=== PATIENT | female | born 1970 | race Caucasian/White ===

== ENCOUNTER 2021-01-17 19:39 | Inpatient (IN) ==
[2021-01-17] MEDS ORDERED: dexAMETHasone**PF** 10 MG/ML VIAL IV ONE (20:06)
[2021-01-17] MEDS ORDERED: ACETAMINOPHEN 1,000 MG/100 ML VIAL IV STA (20:06)
[2021-01-17] MEDS ORDERED: ALBUTEROL HFA 8 GM INHALER INH ONE (20:07)
[2021-01-17 20:51] LABS: Basophils # (auto) 0.01 K/uL (0-0.2); Basophils % (auto) 0.2 %; Eosinophils # (auto) 0.01 K/uL (0-0.5); Eosinophils % (auto) 0.2 %; Hematocrit (blood only) 39.2 % (37-47); Hemoglobin 13.1 g/dL (12.0-16.0); Immature Granulocytes # (auto) 0.02 K/uL (0.00-0.02); Immature Granulocytes % (auto) 0.4 %; Lymphocytes # (auto) 0.83 K/uL (1.2-3.4); Lymphocytes % (auto) 15.1 %; Mean Corpuscular Hemoglobin 28.6 pg (25-34); Mean Corpuscular Hgb Conc 33.4 g/dL (32-36); Mean Corpuscular Volume 85.6 fL (80-100); Monocytes # (auto) 0.51 K/uL (0.11-0.59); Monocytes % (auto) 9.3 %; Neutrophils % (auto) 74.8 %; Platelet Count 231 K/uL (130-400); RDW Coefficient of Variation 14.1 % (11.5-14.5); RDW Standard Deviation 44.4 fL (36.4-46.3); Red Blood Count 4.58 M/uL (4.2-5.4); White Blood Count 5.48 K/uL (4.8-10.8)
[2021-01-17 21:01] LABS: Partial Thromboplastin Ratio 0.9; Partial Thromboplastin Time 24.2 Seconds (21.0-31.0); Prothrombin Time 9.7 Seconds (9.0-12.0)
[2021-01-17 21:07] LABS: Alanine Aminotransferase 92 U/L (12-78); Aspartate Aminotransferase 96 U/L (15-37); BUN Creatinine Ratio 18.6 (10-20); Blood Urea Nitrogen 13 mg/dl (7-18); Carbon Dioxide 27 mmol/L (21-32); Chloride 105 mmol/L (98-107); Creatinine Clr Calc Pharmacy 119.8 ml/min; Est GFR (African American) 117.1 ml/min; Est GFR (Non-African American) 101.1 ml/min; Glucose 122 mg/dl (70-99); Magnesium 2.1 mg/dl (1.8-2.4); Potassium 3.8 mmol/L (3.5-5.1); Sodium 139 mmol/L (136-145)
[2021-01-17 21:12] LABS: Albumin Globulin Ratio 0.7 (0.9-2); Alkaline Phosphatase 88 U/L (45-117); Bilirubin,Total 0.5 mg/dl (0.2-1); Ferritin 631.6 ng/ml (8-388); Globulin 4.6 gm/dl (2.5-4.0); Total Protein 7.6 gm/dl (6.4-8.2); Troponin I < 0.015 ng/ml (0-0.045)
[2021-01-17] MEDS ORDERED: REMDESIVIR 200 MG in SODIUM CHLORIDE 0.9% 210 ML IV STA (22:45)
--- NOTE | 2021-01-17 22:46 | History & Physical Report ---
Date of Service January 17, 2021 Assessment & Plan (1) COVID-19: Plan: 50yo female with no significant past history presenting with Covid-19 infection, hypoxic to 85% on arrival. Patient improved with supplemental O2 - presently 97% on 4L -Admit to medical -Dexamethasone 6mg IV daily -Remdesivir per protocol. Monitor liver and renal function. Patient has mild elevation in AST/ALT -Tylenol PRN fever -Albuterol HFA PRN -Lovenox 40mg BID for DVT prophylaxis History of Present Illness Chief Complaint: Cough, SOB Primary Care Provider: Nilsa James MD Ashley Alonso is a 50yo female with history of seasonal allergies presenting with Covid-19 pneumonia. Patient reports symptoms began 6 days ago - fever, fatigue, malaise as well as cough and SUERO. She was tested for Covid-19 at [facility] and got her results this AM. Her purchased a pulse oximeter and patient's pulse ox was noted to be 89% on room air. Patient 85% on room air on arrival to ER. She was placed on 4L NC with improvement. She is not vaccinated and was recently around others with Covid-19. Presently with no complaints. Doing well on 2L NC. Allergies Allergy/AdvReac Type Severity Reaction Status Date / Time No Known Allergies Allergy Verified 01/17/21 20:01 Home Medications Medication Instructions Recorded Confirmed Type cetirizine 10 mg tablet (Zyrtec) 10 mg PO DAILY PRN 11/12/20 01/17/21 History fluticasone propionate 50 1 spray INTRANASAL BID PRN 11/12/20 01/17/21 History mcg/actuation nasal spray,suspension Past Med/Surg History Medical History (Updated 01/18/21 @ 02:08 by Lynnette Goncalves DO) COVID-19 Seasonal allergies Surgical History S/P left knee arthroscopy Family History Other No family history of adverse response to anesthesia Social History Smoking Status: Never smoker Second Hand Exposure: No; Hx Alcohol Use: Yes Alcohol type: hard liquor Hx Substance Use: No Preferred Language: Lao Communication Ability: Effective Director Informatics Required: No Beliefs That Will Affect Care: None Current Living Situation: Spouse Current Living Situation Comment: Lives with Other Information That Helps Us Care for You: No Feels Safe at Home: Yes Safety Concerns: Feels Safe At This Time Assistive Devices: None Review of Systems Review of Systems: All systems reviewed & are unremarkable except as noted in HPI & below Physical Exam Physical Exam: General: patient resting comfortably, NAD, non-toxic in appearance, AA&O x 4 Skin: warm, dry, intact, no rashes or lesions HEENT: NC/AT, PERRL, EOMI, anicteric sclera, conjunctiva without injection, external ear normal to inspection and nontender, nares patent, moist mucus membranes, dentition intact, no oropharyngeal lesions, neck supple, trachea midline, no LAD, no thyromegaly, no JVD Heart: +S1/S2, regular, no m/r/g Lungs: equal air entry bilaterally, crackles in bilateral bases Abd: +BS, soft, NT/ND, no masses/organomegaly/ascites Ext: warm, 2+ pulses in UE/LE bilaterally, no clubbing/cyanosis or edema Neuro: nonfocal, patient AA&O x 4, speech intact, no facial droop, moving all extremities on command with equal strength 5/5 Results & Data Results & Data ([facility]) Vital Signs (Past 12 Hours) Vital Signs Temp Pulse Resp BP Pulse Ox 01/17/21 22:30 87 17 118/84 98 01/17/21 22:01 81 21 102/78 95 01/17/21 21:30 85 22 100/70 93 01/17/21 21:00 83 20 140/69 95 01/17/21 20:00 91 H 20 141/73 H 95 01/17/21 19:51 37.2 C 95 H 30 H 136/81 85 L Laboratory Results Laboratory Results WBC 5.48 K/uL (4.8-10.8) 01/17/21 20:30 RBC 4.58 M/uL (4.2-5.4) 01/17/21 20:30 Hgb 13.1 g/dL (12.0-16.0) 01/17/21 20:30 Hct 39.2 % (37-47) 01/17/21 20:30 MCV 85.6 fL (80-100) 01/17/21 20:30 MCH 28.6 pg (25-34) 01/17/21 20:30 MCHC 33.4 g/dL (32-36) 01/17/21 20: RDW Std Deviation 44.4 fL (36.4-46.3) 01/17/21: RDW Coeff of Anum 14.1 % (11.5-14.5) 01/17/21 20:30 Plt Count 231 K/uL (130-400) 01/17/21: MPV 9.0 fL (7.4-10.4) 01/17/21 20: Immature Gran % (Auto) 0.4 % 01/17/21 20:30 Neut % (Auto) 74.8 % 01/17/21 20:30 Lymph % (Auto) 15.1 % 01/17/21: [place] % (Auto) 9.3 % 01/17/21 20:30 Eos % (Auto) 0.2 % 01/17/21:30 Baso % (Auto) 0.2 % 01/17/21:30 Neut # (Auto) 4.10 K/uL (1.4-6.5) 01/17/21 20:30 Lymph # (Auto) 0.83 K/uL (1.2-3.4) L 01/17/21 20:30 [place] # (Auto) 0.51 K/uL (0.11-0.59) 01/17/21 20:30 Eos # (Auto) 0.01 K/uL (0-0.5) 01/17/21 20:30 Baso # (Auto) 0.01 K/uL (0-0.2) 01/17/21:30 Immature Gran # (Auto) 0.02 K/uL (0.00-0.02) 01/17/21 20:30 ESR 49 mm/hr (0-30) H 01/17/21 20:30 PT 9.7 Seconds (9.0-12.0) 01/17/21 20:30 INR 1.0 (0.9-1.1) 01/17/21 20:30 APTT 24.2 Seconds (21.0-31.0) 01/17/21 20:30 PTT Ratio 0.9 01/17/21:30 Sodium 139 mmol/L (136-145) 01/17/21 20:30 Potassium 3.8 mmol/L (3.5-5.1) 01/17/21 20:30 Chloride 105 mmol/L (98-107) 01/17/21 20:30 Carbon Dioxide 27 mmol/L (21-32) 01/17/21 20:30 Anion Gap 7.0 (3-11) 01/17/21 20:30 BUN 13 mg/dl (7-18) 01/17/21 20:30 Creatinine 0.67 mg/dl (0.6-1.2) 01/17/21 20:30 Est Cr Clr Drug Dosing 119.8 ml/min 01/17/21 20:30 Est GFR ( Amer) 117.1 ml/min 01/17/21 20:30 Est GFR (Non-Af Amer) 101.1 ml/min 01/17/21 20:30 BUN/Creatinine Ratio 18.6 (10-20) 01/17/21 20:30 Glucose 122 mg/dl (70-99) H 01/17/21 20:30 Lactate 1.1 mmol/L (0.4-2.0) 01/17/21 20:30 Calcium 9.0 mg/dl (8.5-10.1) 01/17/21: Phosphorus 3.1 mg/dl (2.5-4.9) 01/17/21 20:30 Magnesium 2.1 mg/dl (1.8-2.4) 01/17/21 20:30 Ferritin 631.6 ng/ml (8-388) H 01/17/21 20:30 Total Bilirubin 0.5 mg/dl (0.2-1) 01/17/21 20:30 AST 96 U/L (15-37) H 01/17/21 20:30 ALT 92 U/L (12-78) H 01/17/21 20:30 Alkaline Phosphatase 88 U/L (45-117) 01/17/21 20:30 Lactate Dehydrogenase 490 U/L (84-246) H 01/17/21 20:30 Troponin I < 0.015 ng/ml (0-0.045) 01/17/21 20:30 C-Reactive Protein 10.70 mg/dl (0-0.29) H 01/17/21 20:30 Total Protein 7.6 gm/dl (6.4-8.2) 01/17/21 20:30 Albumin 3.0 gm/dl (3.4-5.0) L 01/17/21 20:30 Globulin 4.6 gm/dl (2.5-4.0) H 01/17/21 20:30 Albumin/Globulin Ratio 0.7 (0.9-2) L 01/17/21 20:30 Procalcitonin < 0.05 ng/ml (0-0.5) 01/17/21 20:30 COVID-19 Eval Order Covid19 at [facility] 01/17/21 20:23 SARS-CoV-2 (PCR) POSITIVE (Negative) A* 01/17/21 20:23 Blood Type A Positive 01/17/21 20:45 Antibody Screen NEGATIVE 01/17/21 20:45 Diagnostic Findings CXR - by my interpretation patient with patchy bilateral airspace disease Code Status & VTE Plan VTE Prophylaxis Plan VTE Prophylaxis will be ordered: Yes PG Care Time/CCT Total # of Minutes Spent Total Time Spent with Patient: Total time spent is greater than 50% in coordination of care (as documented) at patient's floor/unit and/or counseling patient: Coding Level of Care Code 09521 Initial Inpt Care Lvl 2 Diagnoses COVID-19 U07.1
[2021-01-18] MEDS ORDERED: ONDANSETRON INJ 2 MG/ML 2 ML VIAL IV PRN (00:31)
[2021-01-18] MEDS ORDERED: ACETAMINOPHEN 325 MG TAB PO PRN (00:31)
[2021-01-18 01:02] LABS: Phosphorus 3.1 mg/dl (2.5-4.9)
[2021-01-18] MEDS: SODIUM CHLORIDE 0.9% 10ML FLUSH IV SCH ×2 (02:21→21:21)
[2021-01-18] MEDS: ALBUTEROL HFA 8 GM INHALER INH SCH ×2 (03:46→07:43)
[2021-01-18] MEDS: ENOXAPARIN INJ 40 MG/0.4 ML SYR SQ SCH ×2 (05:47→17:57)
--- NOTE | 2021-01-18 08:07 | XRay Report ---
XR chest 1V portable HISTORY: 50 years-old Female SEPSIS acute sepsis COMPARISON: None TECHNIQUE: AP view of the chest FINDINGS: Cardiac silhouette is normal. Bilateral interstitial opacities with patchy multifocal airspace densit ies. No pneumothorax or large pleural effusion. Bones appear grossly intact. IMPRESSION: Bilateral mixed interstitial and alveolar opacities suggestive of multifocal pneumonia. ACT 112: Negative or not required by law. The above report was generated using voice recognition software. It may contain grammatical, syntax o r spelling errors. Electronically signed by: Michel Anthony M.D. 01/18/2021 8:06 AM
[2021-01-18 08:28] LABS: Basophils # (auto) 0.01 K/uL (0-0.2); Basophils % (auto) 0.4 %; Hematocrit (blood only) 38.9 % (37-47); Immature Granulocytes # (auto) 0.02 K/uL (0.00-0.02); Immature Granulocytes % (auto) 0.7 %; Lymphocytes % (auto) 21.1 %; Mean Corpuscular Hemoglobin 28.4 pg (25-34); Mean Corpuscular Hgb Conc 33.4 g/dL (32-36); Mean Corpuscular Volume 84.9 fL (80-100); Monocytes # (auto) 0.17 K/uL (0.11-0.59); Neutrophils # (auto) 2.04 K/uL (1.4-6.5); Neutrophils % (auto) 71.8 %; Platelet Count 258 K/uL (130-400); RDW Standard Deviation 43.4 fL (36.4-46.3); Red Blood Count 4.58 M/uL (4.2-5.4); White Blood Count 2.84 K/uL (4.8-10.8)
[2021-01-18 08:59] LABS: Albumin Level 2.9 gm/dl (3.4-5.0); BUN Creatinine Ratio 19.8 (10-20); Bilirubin Direct 0.1 mg/dl (0-0.2); Calcium 8.9 mg/dl (8.5-10.1); Creatinine Clr Calc Pharmacy 136.1 ml/min; Est GFR (African American) 122.1 ml/min; Est GFR (Non-African American) 105.4 ml/min; Potassium 3.9 mmol/L (3.5-5.1)
[2021-01-18 09:02] LABS: Bilirubin,Total 0.5 mg/dl (0.2-1); Total Protein 7.6 gm/dl (6.4-8.2)
[2021-01-18] MEDS: dexAMETHasone 6 MG in SYRINGE 0 ML IV SCH (09:02)
[2021-01-18] MEDS ORDERED: ALBUTEROL HFA 8 GM INHALER INH PRN (10:34)
[2021-01-18 11:04] LABS: Appearance Urine Clear (Clear); Bacteria Urine Automated Negative (Negative); Blood Urine Negative (Negative); Color Urine Dark Yellow; Epithelial Cell Urine Auto >30 /lpf (0-5); Glucose Urine UA Negative (Negative); Ketones Urine 2+ (Negative); Leukocyte Esterase Urine Negative (Negative); Nitrite Urine Negative (Negative); Protein Urine 1+ (Negative); Specific Gravity Urine 1.033 (1.000-1.030); Urobilinogen Urine Negative (Negative); pH Urine 5.5 (4.5-7.5)
[2021-01-18 11:06] LABS: Bilirubin Urine 1+ (Negative)
[2021-01-18 11:19] LABS: RBC Urine Automated 0-4 /hpf (0-4)
--- NOTE | 2021-01-18 16:23 | Electrocardiogram Report ---
Test Reason : Blood Pressure : / mmHG Vent. Rate : 089 BPM Atrial Rate : 089 BPM P-R Int : 134 ms QRS Dur : 080 ms QT Int : 364 ms P-R-T Axes : 036 025 002 degrees QTc Int : 442 ms Normal sinus rhythm Normal ECG No previous ECGs available Confirmed by Bucky Zhang ([id number]) on 01/18/2021 4:23:52 PM Referred By: REFERRED SELF Confirmed By:Bucky Zhang
--- NOTE | 2021-01-18 18:20 | Hospitalist Progress Note ---
Date of Service January 18, 2021 Assessment & Plan (1) COVID-19: Plan: 50yo female with no significant past history presenting with Covid-19 infection, hypoxic to 85% on arrival. Patient improved with supplemental O2 - presently 97% on 4L -Continue on medical -Dexamethasone 6mg IV daily -Remdesivir per protocol. Monitor liver and renal function. Patient has mild elevation in AST/ALT (downtrending) -Tylenol PRN fever -Albuterol HFA PRN -Lovenox 40mg BID for DVT prophylaxis (2) Hypoxia: Plan: Aim O2 sats > 92% Admission and Anticipated Discharge Date Admission Date: January 17, 2021 Subjective Main symptoms of fatigue, dry cough and headache. No significant change since admission. Increased O2 requirement from 4LPM to 6LPM. Review of Systems Review of Systems: All systems reviewed & are unremarkable except as noted in HPI & below Physical Exam Constitutional: WD/WN, vitals as above ENMT: external ear and nose normal, oropharynx normal Neck: trachea midline, no thyromegaly Respiratory: normal respiratory effort, lungs clear to auscultation Auscultation: + diminished lung sounds (bibasal); no crackles and no wheezes Cardiovascular: RRR, no murmur, no edema Extremities: normal capillary refill; no calf tenderness and no pedal edema Gastrointestinal (Abdomen): normal bowel sounds, soft, nontender, no h epatosplenomegaly Musculoskeletal: no cyanosis or clubbing, extremities motor strength 5/5 Skin: no rashes, warm and dry Neurologic: moves all extremities and awake; not confused Psychiatric: A+Ox3, euthymic affect Results & Data Results & Data ([facility]) Vital Signs (Past 12 Hours) Vital Signs Temp Pulse Resp BP Pulse Ox Pulse Ox 01/18/21 16:37 37 C 71 20 118/76 92 01/18/21 09:00 92 01/18/21 07:44 70 18 88 L 01/18/21 07:43 36.9 C 84 16 114/74 93 PG Care Time/CCT Total # of Minutes Spent Total Time Spent with Patient: Total time spent is greater than 50% in coordination of care (as documented) at patient's floor/unit and/or counseling patient: Coding Level of Care Code 95526 Subseq Hosp Care Lvl 2 Diagnoses COVID-19 U07.1 Hypoxia R09.02
[2021-01-18] MEDS: REMDESIVIR 100 MG in SODIUM CHLORIDE 0.9% 230 ML IV SCH (20:13)
[2021-01-19] MEDS: ENOXAPARIN INJ 40 MG/0.4 ML SYR SQ SCH ×2 (05:37→16:59)
[2021-01-19 08:13] LABS: Basophils # (auto) 0.01 K/uL (0-0.2); Basophils % (auto) 0.2 %; Hematocrit (blood only) 37.5 % (37-47); Hemoglobin 12.4 g/dL (12.0-16.0); Immature Granulocytes # (auto) 0.04 K/uL (0.00-0.02); Immature Granulocytes % (auto) 0.6 %; Lymphocytes # (auto) 1.13 K/uL (1.2-3.4); Lymphocytes % (auto) 18.3 %; Mean Corpuscular Hemoglobin 28.2 pg (25-34); Mean Corpuscular Hgb Conc 33.1 g/dL (32-36); Mean Corpuscular Volume 85.4 fL (80-100); Mean Platelet Volume 8.9 fL (7.4-10.4); Monocytes # (auto) 0.94 K/uL (0.11-0.59); Monocytes % (auto) 15.2 %; Neutrophils # (auto) 4.05 K/uL (1.4-6.5); Neutrophils % (auto) 65.7 %; Platelet Count 324 K/uL (130-400); RDW Coefficient of Variation 13.9 % (11.5-14.5); RDW Standard Deviation 43.9 fL (36.4-46.3); Red Blood Count 4.39 M/uL (4.2-5.4); White Blood Count 6.17 K/uL (4.8-10.8)
[2021-01-19] MEDS: dexAMETHasone 6 MG in SYRINGE 0 ML IV SCH (09:17)
[2021-01-19 09:18] LABS: Albumin Level 2.9 gm/dl (3.4-5.0); BUN Creatinine Ratio 28.7 (10-20); C Reactive Protein 5.65 mg/dl (0-0.29); Calcium 8.7 mg/dl (8.5-10.1); Creatinine Clr Calc Pharmacy 118.1 ml/min; Est GFR (African American) 116.6 ml/min; Est GFR (Non-African American) 100.6 ml/min; Potassium 4.4 mmol/L (3.5-5.1)
[2021-01-19 09:21] LABS: Albumin Globulin Ratio 0.7 (0.9-2); Bilirubin,Total 0.3 mg/dl (0.2-1); Globulin 4.2 gm/dl (2.5-4.0); Total Protein 7.1 gm/dl (6.4-8.2)
--- NOTE | 2021-01-19 18:53 | Hospitalist Progress Note ---
Date of Service January 19, 2021 Assessment & Plan (1) COVID-19: Plan: 50yo female with no significant past history presenting with Covid-19 infection, hypoxic to 85% on arrival. Patient improved with supplemental O2 - presently 97% on 4L -Continue on medical -Dexamethasone 6mg IV daily -Remdesivir per protocol. Monitor liver and renal function. Patient has mild elevation in AST/ALT (downtrending) -CRP downtrending -Tylenol PRN fever -Albuterol HFA PRN -Lovenox 40mg BID for DVT prophylaxis (2) Hypoxia: Plan: Aim O2 sats > 92% Admission and Anticipated Discharge Date Admission Date: January 17, 2021 Subjective O2 requirement stable at 6LPM. Reports symptoms improving, headache improved, still with a lot of dry coughing and fatigue however. Able to walk around room without significant shortness of breath. Having bowel movements without diarrhea. Review of Systems Review of Systems: All systems reviewed & are unremarkable except as noted in HPI & below Physical Exam Constitutional: WD/WN, vitals as above ENMT: external ear and nose normal, oropharynx normal Neck: trachea midline, no thyromegaly Respiratory: normal respiratory effort, lungs clear to auscultation Auscultation: + diminished lung sounds (bibasal); no crackles and no wheezes Cardiovascular: RRR, no murmur, no edema Extremities: normal capillary refill; no calf tenderness and no pedal edema Gastrointestinal (Abdomen): normal bowel sounds, soft, nontender, no hepatosplenomegaly Musculoskeletal: no cyanosis or clubbing, extremities motor strength 5/5 Skin: no rashes, warm and dry Neurologic: moves all extremities and awake; not confused Psychiatric: A+Ox3, euthymic affect Results & Data Results & Data ([facility]) Vital Signs (Past 12 Hours) Vital Signs Temp Pulse Resp BP Pulse Ox 01/19/21 17:03 93 01/19/21 16:34 36.9 C 78 16 107/63 96 01/19/21 08:50 37.1 C 66 18 106/70 97 PG Care Time/CCT Total # of Minutes Spent Total Time Spent with Patient: Total time spent is greater than 50% in coordination of care (as documented) at patient's floor/unit and/or counseling patient: Coding Level of Care Code 77113 Subseq Hosp Care Lvl 2 Diagnoses COVID-19 U07.1 Hypoxia R09.02
[2021-01-19] MEDS: REMDESIVIR 100 MG in SODIUM CHLORIDE 0.9% 230 ML IV SCH (20:05)
[2021-01-19] MEDS: SODIUM CHLORIDE 0.9% 10ML FLUSH IV SCH (21:22)
[2021-01-20] MEDS: ENOXAPARIN INJ 40 MG/0.4 ML SYR SQ SCH ×2 (06:17→18:26)
[2021-01-20] MEDS: dexAMETHasone 6 MG in SYRINGE 0 ML IV SCH (09:10)
--- NOTE | 2021-01-20 15:59 | Hospitalist Progress Note ---
Date of Service January 20, 2021 Assessment & Plan (1) COVID-19: Plan: 50yo female with no significant past history presenting with Covid-19 infection, hypoxic to 85% on arrival. Improving O2 requirement. Down to 1L at rest. 3L most of today. -Continue on medical -Dexamethasone 6mg IV daily -Remdesivir per protocol. Monitor liver and renal function. Patient has mild elevation in AST/ALT (downtrending) -CRP downtrending -Tylenol PRN fever -Albuterol HFA PRN -Lovenox 40mg BID for DVT prophylaxis, d-dimer with AM labs to determine risk and potential need for short term anticoagulation at home given increased risk with obesity (2) Hypoxia: Plan: Aim O2 sats > 92% 2 step tomorrow to see if she qualifies for home O2. then potential discharge. Given she is still needing O2 will treat with full 10 day course of dexamethasone. Admission and Anticipated Discharge Date Admission Date: January 17, 2021 Anticipated date of discharge: 01/21/21 Subjective O2 requirement down to 1LPM with sats 91-93%. Improving fatigue. Cough the same. Headache gone. No diarrhea. Appetite improving. Review of Systems Review of Systems: All systems reviewed & are unremarkable except as noted in HPI & below Physical Exam Constitutional: WD/WN, vitals as above Respiratory: normal respiratory effort, lungs clear to auscultation Auscultation: + diminished lung sounds (bibasal, improving); no crackles and no wheezes Cardiovascular: RRR, no murmur, no edema Extremities: normal capillary refill; no calf tenderness and no pedal edema Gastrointestinal (Abdomen): normal bowel sounds, soft, nontender, no hepatosplenomegaly Musculoskeletal: no cyanosis or clubbing, extremities motor strength 5/5 Skin: no rashes, warm and dry Neurologic: moves all extremities and awake; not confused Psychiatric: A+Ox3, euthymic affect Results & Data Results & Data ([facility]) Vital Signs (Past 12 Hours) Vital Signs Pulse Ox Pulse Ox 01/20/21 11:05 97 01/20/21 09:00 96 96 PG Care Time/CCT Total # of Minutes Spent Total Time Spent with Patient: Total time spent is greater than 50% in coordination of care (as documented) at patient's floor/unit and/or counseling patient: Coding Level of Care Code 17223 Subseq Hosp Care Lvl 2 Diagnoses COVID-19 U07.1 Hypoxia R09.02
[2021-01-20] MEDS: REMDESIVIR 100 MG in SODIUM CHLORIDE 0.9% 230 ML IV SCH (21:14)
[2021-01-20] MEDS: SODIUM CHLORIDE 0.9% 10ML FLUSH IV SCH (22:14)
[2021-01-21] MEDS: ENOXAPARIN INJ 40 MG/0.4 ML SYR SQ SCH (06:06)
[2021-01-21 07:40] LABS: Basophils # (auto) 0.01 K/uL (0-0.2); Basophils % (auto) 0.2 %; Hematocrit (blood only) 38.4 % (37-47); Hemoglobin 12.5 g/dL (12.0-16.0); Immature Granulocytes # (auto) 0.08 K/uL (0.00-0.02); Immature Granulocytes % (auto) 1.2 %; Lymphocytes # (auto) 1.69 K/uL (1.2-3.4); Mean Corpuscular Hgb Conc 32.6 g/dL (32-36); Mean Corpuscular Volume 85.9 fL (80-100); Mean Platelet Volume 8.9 fL (7.4-10.4); Monocytes # (auto) 0.85 K/uL (0.11-0.59); Monocytes % (auto) 13.1 %; Neutrophils # (auto) 3.87 K/uL (1.4-6.5); Neutrophils % (auto) 59.5 %; Platelet Count 425 K/uL (130-400); RDW Coefficient of Variation 13.9 % (11.5-14.5); RDW Standard Deviation 43.9 fL (36.4-46.3); Red Blood Count 4.47 M/uL (4.2-5.4)
[2021-01-21 08:04] LABS: Albumin Globulin Ratio 0.7 (0.9-2); Albumin Level 2.9 gm/dl (3.4-5.0); BUN Creatinine Ratio 29.1 (10-20); Bilirubin,Total 0.3 mg/dl (0.2-1); C Reactive Protein 1.86 mg/dl (0-0.29); Creatinine Clr Calc Pharmacy 114.7 ml/min; Est GFR (African American) 115.5 ml/min; Est GFR (Non-African American) 99.6 ml/min; Globulin 3.9 gm/dl (2.5-4.0); Potassium 4.1 mmol/L (3.5-5.1); Total Protein 6.8 gm/dl (6.4-8.2)
[2021-01-21 08:16] LABS: D Dimer 640 ug/L FEU (0-500)
[2021-01-21] MEDS: dexAMETHasone 6 MG in SYRINGE 0 ML IV SCH (08:31)
[2021-01-21] MEDS ORDERED: guaiFENesin/DEXTROM SYRUP 200MG/20MG 10ML UDC PO PRN (10:08)
--- NOTE | 2021-01-21 10:39 | Discharge Summary ---
Date of Service January 21, 2021 Admission HPI Per Admitting Provider Ashley Alonso is a 50yo female with history of seasonal allergies presenting with Covid-19 pneumonia. Patient reports symptoms began 6 days ago - fever, fatigue, malaise as well as cough and SUERO. She was tested for Covid-19 at [facility] and got her results this AM. Her purchased a pulse oximeter and patient's pulse ox was noted to be 89% on room air. Patient 85% on room air on arrival to ER. She was placed on 4L NC with improvement. She is not vaccinated and was recently around others with Covid-19. Presently with no complaints. Doing well on 2L NC. Discharge Data Allergies Allergy/AdvReac Type Severity Reaction Status Date / Time No Known Allergies Allergy Verified 01/17/21 20:01 Consultations 01/17/21 21:10 ED Decision to Admit Stat Hospital Course (1) COVID-19: 50yo female with no significant past history presenting with Covid-19 infection, hypoxic to 85% on arrival. Improving O2 requirement. Down to 1L at rest. 3L most of today. -Continue on medical -Dexamethasone 6mg IV daily -Remdesivir per protocol. Monitor liver and renal function. Patient has mild elevation in AST/ALT (downtrending) -CRP downtrending -Tylenol PRN fever -Albuterol HFA PRN -Lovenox 40mg BID for DVT prophylaxis, d-dimer with AM labs to determine risk and potential need for short term anticoagulation at home given increased risk with obesity (2) Hypoxia: Aim O2 sats > 92% 2 step tomorrow to see if she qualifies for home O2. then potential discharge. Given she is still needing O2 will treat with full 10 day course of dexamethasone. Discharge Plan Discharge Items Patient Disposition: Home - Self-Care Reason For Visit: COVID-19 Discharge Diagnosis: COVID-19 pneumonia Activity: Resume your previous activity Non-emergency contact: Primary Care Provider Call non-emergency contact if: you have any medication questions and your symptoms worsen Follow-up/Referrals: Nilsa James MD [Primary Care Provider] - Diet: Regular Addtl Attending Provider Instructions: You were admitted to [facility] from January 17 - 2020 due to shortness of breath and low oxygen levels. You were diagnosed with COVID-19 pneumonia. This was treated with dexamethasone (steroid) and remdesivir during your inpatient stay and you should continue on dexamethasone for a total of 10 day course (5 further days) given continued low oxygen levels. Since your oxygen levels continue to be low on exertion we have prescribed 2 liters per minute oxygen on exertion. Oxygen can be discontinued if your are ambulating and oxygen saturations remain above 90% on room air. Please follow up with your primary care physician after isolation if you are still requiring oxygen. Please continue to isolate per CDC guidelines: * 10 days since symptoms first appeared and * 24 hours with no fever without the use of fever-reducing medications and * Other symptoms of COVID-19 are improving* *Loss of taste and smell may persist for weeks or months after recovery and need not delay the end of isolation. Recommend you are still vaccinated against COVID-19 after you have completed isolation and recovered from your current illness. Pending Studies at Discharge: No Stand-Alone Forms: My [facility] [employer], Smoking Cessation Medications and DC Order Prescriptions: New dexamethasone 6 mg tablet 6 mg PO DAILY Qty: 5 RF: 0 Continued fluticasone propionate 50 mcg/actuation [place],Suspension 1 spray INTRANASAL BID PRN (Reason: sinus congestion) RF: 0 cetirizine [Zyrtec] 10 mg Tablet 10 mg PO DAILY PRN (Reason: seasonal allergies) RF: 0 Discharge Orders: Discharge Order (Routine); Ordered 01/21/21 Ordered By: Houston Crain/Other Patient Handouts: 2019-nCoV, COVID-19 Home Care, 5 Steps for Eating Healthier Admission Data Admit Date/Time: 01/17/21 22:45 Attending Provider: Houston Sanchez Admit Provider: Lynnette Goncalves Primary Care Provider: Nilsa James Other Providers: Lynnette Goncalves Coding Diagnoses COVID-19 U07.1 Hypoxia R09.02
--- NOTE | 2021-01-23 15:23 | Emergency Department Note ---
Impression & Plan Hypoxia, COVID-19 ED Provider Note NAME: EMELI PAREDES AGE: 50 SEX: F : 1970 ARRIVES VIA: Walk-In INFORMANT: Patient, ED PROVIDER(S): Raphael Elmore MD CHIEF COMPLAINT: HPI: Records review reveals this patient had a colonoscopy in November of this year. This is a 50-year-old female who presents emergency department complaining of generalized weakness and fatigue that has been ongoing since Monday. The patie nt had a Covid test on Monday which she did not get the results from back yet. She reports any exertion makes the weakness worse however rest makes it somewhat better. She has not been taking anything for this. The patient is not vaccinated for the virus. ROS: See above HPI for pertinent positives & negatives. A total of 10 systems reviewed and were otherwise negative. PAST MEDICAL HISTORY: See Below PAST SURGICAL HISTORY: See Below FAMILY HISTORY: See Below SOCIAL HISTORY: See Below HOME MEDICATIONS: See Below ALLERGIES: See Below VITALS: See Below PHYSICAL EXAMINATION: VITAL SIGNS - Vital signs and nursing notes were reviewed. GENERAL - 50-year-old female appearing stated age who is in no acute distress. Communicates well with provider and answers questions appropriately. SKIN - Without rashes. HEAD - NC/AT. EYES - PERRL with EOMI bilaterally. Sclera anicteric. Palpebral conjunctiva pink and moist with no injection noted. EARS - No deformities of external structures noted on gross examination bilaterally. NOSE - Midline and without cyanosis. No epistaxis or purulent drainage noted. Septum midline without deviation or septal hematoma noted. MOUTH/OROPHARYNX - Without perioral cyanosis. Buccal mucosa pink and moist and without leukoplakia. Tongue midline with equal elevation of palate bilaterally. No tonsillar hypertrophy, erythema, or exudates noted. NECK - Neck with FROM. Supple to palpation. LUNGS - Chest wall symmetric without accessory muscle use, intercostals retractions, or central cyanosis. Normal vesicular breath sounds CTA B/L. No wheezes, rales, or rhonchi appreciated. CARDIAC - RRR with S1/S2. No murmur, rubs, or gallops appreciated. ABDOMEN - Abdominal contour without pulsations or visible masses. BS normo active all four quadrants. No tenderness, palpable masses, hepatosplenomegaly, or ascites noted. EXTREMITIES - No clubbing or peripheral cyanosis. No pretibial edema present. +3/5 radial, posterior tibial, and dorsalis pedis pulses palpated throughout. +5/5 strength noted in UE/LE bilaterally. NEUROLOGIC - Cranial nerves II through XII grossly intact. Sensory intact to light touch throughout. Patellar reflexes +2/4. PSYCH - A&Ox3 and cooperates fully with examiner. Pt is very pleasant and int eracts well with examiner. MEDICAL DECISION MAKING: Patient was seen and evaluated as above in room. Review was performed of nursing notes and vital signs. I did review pertinent previous visits and patient history. After obtaining a thorough history and physical examination the above work up was performed. This is a 50-year-old female who tested positive for Covid. The patient is hypoxic here in the emergency department. She was started on Decadron as well as acetaminophen here. Chest x-ray is consistent with Covid pneumonia. She does not have an elevation in her white blood cell count does not have an elevation in her troponin. Her D-dimer was found to be elevated. Because the patient is hypoxic I did discuss the case with the hospitalist service who did agree to admit the patient. Patient is in agreement with the treatment plan. While in the department, I personally reevaluated the patient several times and each time the patient was found to be resting comfortably. The patient was educated upon management, educated upon todays findings/results, educated upon importance of follow up from today's visit, educated upon symptoms in which to return, had questions answered prior to discharge, verbalized understanding, and was discharged home in good condition. An order was placed for continuous cardiac monitoring. The monitor shows a rate of 75 with Normal Sinus rhythm. The patient was evaluated during a period of high volume and high acuity during the global COVID-19 pandemic, and that diagnosis was suspected/considered upon their initial presentation. Their evaluation, treatment and testing was consistent with current guidelines for patients who present with complaints or symptoms that may be related to COVID-19. Patient was seen while provider was w earing PPE. Triage Nursing notes reviewed. Prior medical records reviewed Vital Signs: reviewed and remarkable for no significant abnormalities Differential diagnosis: Reactive airway disease, pneumonia, pneumothorax, COPD, CHF, infections, cardiac ischemia, pulmonary embolism, musculoskeletal, gastrointestinal, as well as other pathologies. ER treatment provided: See below Diagnostics interpreted by me: ECG: Normal sinus rhythm normal EKG QTC is 442 ventricular rate is [address] el evation or depression there is no previous EKG to compare to Laboratory studies: As stated above and show below. Imaging studies: See below Consultation(s): Internal Medicine Critical Care: I have personally spent greater than 30 minutes of critical care time in the direct management of this patient. This includes bedside care, interpretation of diagnostic studies, and testing, discussion with consultants, patient, and family members, and other required patient management activities. This 30 minutes is in excess of all separately billable procedures. Past Med/Surg History Medical History (Updated 01/23/21 @ 15:28 by Raphael Elmore MD) COVID-19 Seasonal allergies Surgical History S/P left knee arthroscopy Family History Other No family history of adverse response to anesthesia Social History Smoking Status: Never smoker Second Hand Exposure: No; Hx Alcohol Use: Yes Alcohol type: hard liquor Hx Substance Use: No Preferred Language: Venezuelan Communication Ability: Effective Operating Room Rn Required: No Beliefs That Will Affect Care: None Current Living Situation: Spouse Current Living Situation Comment: Lives with Feels Safe at Home: Yes Assistive Devices: Oxygen - Continuous Allergies Allergies Allergy/AdvReac Type Severity Reaction Status Date / Time No Known Allergies Allergy Verified 01/17/21 20:01 Home Meds Home Medications Medication Instructions Recorded Confirmed cetirizine 10 mg tablet (Zyrtec) 10 mg PO DAILY PRN 11/12/20 01/17/21 fluticasone propionate 50 1 spray INTRANASAL BID PRN 11/12/20 01/17/21 mcg/actuation nasal spray,suspension Previous Rx's Medication Instructions Recorded dexamethasone 6 mg tablet 6 mg PO DAILY #5 tab 01/21/21 Results & Data (ED) Home Medications Current Medication List: was personally reviewed by me Laboratory Data Attestation: I reviewed the patient's lab results. Result diagrams: 01/21/21 06:32 01/21/21 06:32 Lab Results 01/17/21 01/17/21 01/17/21 Range/Units 20:23 20:23 20:30 WBC 5.48 (4.8-10.8) K/uL RBC 4.58 (4.2-5.4) M/uL Hgb 13.1 (12.0-16.0) g/dL Hct 39.2 (37-47) % MCV 85.6 (80-100) fL MCH 28.6 (25-34) pg MCHC 33.4 (32-36) g/dL RDW Std Deviation 44.4 (36.4-46.3) fL RDW Coeff of Anum 14.1 (11.5-14.5) % Plt Count 231 (130-400) K/uL MPV 9.0 (7.4-10.4) fL Immature Gran % (Auto) 0.4 % Neut % (Auto) 74.8 % Lymph % (Auto) 15.1 % [place] % (Auto) 9.3 % Eos % (Auto) 0.2 % Baso % (Auto) 0.2 % Neut # (Auto) 4.10 (1.4-6.5) K/uL Lymph # (Auto) 0.83 L (1.2-3.4) K/uL [place] # (Auto) 0.51 (0.11-0.59) K/uL Eos # (Auto) 0.01 (0-0.5) K/uL Baso # (Auto) 0.01 (0-0.2) K/uL Immature Gran # (Auto) 0.02 (0.00-0.02) K/uL ESR (0-30) mm/hr PT (9.0-12.0) Seconds INR (0.9-1.1) APTT (21.0-31.0) Seconds PTT Ratio Sodium (136-145) mmol/L Potassium (3.5-5.1) mmol/L Chloride (98-107) mmol/L Carbon Dioxide (21-32) mmol/L Anion Gap (3-11) BUN (7-18) mg/dl Creatinine (0.6-1.2) mg/dl Est Cr Clr Drug Dosing ml/min Est GFR ( Amer) ml/min Est GFR (Non-Af Amer) ml/min BUN/Creatinine Ratio (10-20) Glucose (70-99) mg/dl Lactate (0.4-2.0) mmol/L Calcium (8.5-10.1) mg/dl Phosphorus (2.5-4.9) mg/dl Magnesium (1.8-2.4) mg/dl Ferritin (8-388) ng/ml Total Bilirubin (0.2-1) mg/dl AST (15-37) U/L ALT (12-78) U/L Alkaline Phosphatase (45-117) U/L Lactate Dehydrogenase (84-246) U/L Troponin I (0-0.045) ng/ml C-Reactive Protein (0-0.29) mg/dl Total Protein (6.4-8.2) gm/dl Albumin (3.4-5.0) gm/dl Globulin (2.5-4.0) gm/dl Albumin/Globulin Ratio (0.9-2) Procalcitonin (0-0.5) ng/ml COVID-19 Eval Order Covid19 at [facility] SARS-CoV-2 (PCR) POSITIVE A* (Negative) Blood Type Antibody Screen 01/17/21 01/17/21 01/17/21 Range/Units 20:30 20:30 20:30 WBC (4.8-10.8) K/uL RBC (4.2-5.4) M/uL Hgb (12.0-16.0) g/dL Hct (37-47) % MCV (80-100) fL MCH (25-34) pg MCHC (32-36) g/dL RDW Std Deviation (36.4-46.3) fL RDW Coeff of Anum (11.5-14.5) % Plt Count (130-400) K/uL MPV (7.4-10.4) fL Immature Gran % (Auto) % Neut % (Auto) % Lymph % (Auto) % [place] % (Auto) % Eos % (Auto) % Baso % (Auto) % Neut # (Auto) (1.4-6.5) K/uL Lymph # (Auto) (1.2-3.4) K/uL [place] # (Auto) (0.11-0.59) K/uL Eos # (Auto) (0-0.5) K/uL Baso # (Auto) (0-0.2) K/uL Immature Gran # (Auto) (0.00-0.02) K/uL ESR 49 H (0-30) mm/hr PT 9.7 (9.0-12.0) Seconds INR 1.0 (0.9-1.1) APTT 24.2 (21.0-31.0) Seconds PTT Ratio 0.9 Sodium 139 (136-145) mmol/L Potassium 3.8 (3.5-5.1) mmol/L Chloride 105 (98-107) mmol/L Carbon Dioxide 27 (21-32) mmol/L Anion Gap 7.0 (3-11) BUN 13 (7-18) mg/dl Creatinine 0.67 (0.6-1.2) mg/dl Est Cr Clr Drug Dosing 119.8 ml/min Est GFR ( Amer) 117.1 ml/min Est GFR (Non-Af Amer) 101.1 ml/min BUN/Creatinine Ratio 18.6 (10-20) Glucose 122 H (70-99) mg/dl Lactate (0.4-2.0) mmol/L Calcium 9.0 (8.5-10.1) mg/dl Phosphorus 3.1 (2.5-4.9) mg/dl Magnesium 2.1 (1.8-2.4) mg/dl Ferritin 631.6 H (8-388) ng/ml Total Bilirubin 0.5 (0.2-1) mg/dl AST 96 H (15-37) U/L ALT 92 H (12-78) U/L Alkaline Phosphatase 88 (45-117) U/L Lactate Dehydrogenase (84-246) U/L Troponin I < 0.015 (0-0.045) ng/ml C-Reactive Protein 10.70 H (0-0.29) mg/dl Total Protein 7.6 (6.4-8.2) gm/dl Albumin 3.0 L (3.4-5.0) gm/dl Globulin 4.6 H (2.5-4.0) gm/dl Albumin/Globulin Ratio 0.7 L (0.9-2) Procalcitonin (0-0.5) ng/ml COVID-19 Eval Order SARS-CoV-2 (PCR) (Negative) Blood Type Antibody Screen 01/17/21 01/17/21 01/17/21 Range/Units 20:30 20:30 20:30 WBC (4.8-10.8) K/uL RBC (4.2-5.4) M/uL Hgb (12.0-16.0) g/dL Hct (37-47) % MCV (80-100) fL MCH (25-34) pg MCHC (32-36) g/dL RDW Std Deviation (36.4-46.3) fL RDW Coeff of Anum (11.5-14.5) % Plt Count (130-400) K/uL MPV (7.4-10.4) fL Immature Gran % (Auto) % Neut % (Auto) % Lymph % (Auto) % [place] % (Auto) % Eos % (Auto) % Baso % (Auto) % Neut # (Auto) (1.4-6.5) K/uL Lymph # (Auto) (1.2-3.4) K/uL [place] # (Auto) (0.11-0.59) K/uL Eos # (Auto) (0-0.5) K/uL Baso # (Auto) (0-0.2) K/uL Immature Gran # (Auto) (0.00-0.02) K/uL ESR (0-30) mm/hr PT (9.0-12.0) Seconds INR (0.9-1.1) APTT (21.0-31.0) Seconds PTT Ratio Sodium (136-145) mmol/L Potassium (3.5-5.1) mmol/L Chloride (98-107) mmol/L Carbon Dioxide (21-32) mmol/L Anion Gap (3-11) BUN (7-18) mg/dl Creatinine (0.6-1.2) mg/dl Est Cr Clr Drug Dosing ml/min Est GFR ( Amer) ml/min Est GFR (Non-Af Amer) ml/min BUN/Creatinine Ratio (10-20) Glucose (70-99) mg/dl Lactate 1.1 (0.4-2.0) mmol/L Calcium (8.5-10.1) mg/dl Phosphorus (2.5-4.9) mg/dl Magnesium (1.8-2.4) mg/dl Ferritin (8-388) ng/ml Total Bilirubin (0.2-1) mg/dl AST (15-37) U/L ALT (12-78) U/L Alkaline Phosphatase (45-117) U/L Lactate Dehydrogenase 490 H (84-246) U/L Troponin I (0-0.045) ng/ml C-Reactive Protein (0-0.29) mg/dl Total Protein (6.4-8.2) gm/dl Albumin (3.4-5.0) gm/dl Globulin (2.5-4.0) gm/dl Albumin/Globulin Ratio (0.9-2) Procalcitonin < 0.05 (0-0.5) ng/ml COVID-19 Eval Order SARS-CoV-2 (PCR) (Negative) Blood Type Antibody Screen 01/17/21 Range/Units 20:45 WBC (4.8-10.8) K/uL RBC (4.2-5.4) M/uL Hgb (12.0-16.0) g/dL Hct (37-47) % MCV (80-100) fL MCH (25-34) pg MCHC (32-36) g/dL RDW Std Deviation (36.4-46.3) fL RDW Coeff of Anum (11.5-14.5) % Plt Count (130-400) K/uL MPV (7.4-10.4) fL Immature Gran % (Auto) % Neut % (Auto) % Lymph % (Auto) % [place] % (Auto) % Eos % (Auto) % Baso % (Auto) % Neut # (Auto) (1.4-6.5) K/uL Lymph # (Auto) (1.2-3.4) K/uL [place] # (Auto) (0.11-0.59) K/uL Eos # (Auto) (0-0.5) K/uL Baso # (Auto) (0-0.2) K/uL Immature Gran # (Auto) (0.00-0.02) K/uL ESR (0-30) mm/hr PT (9.0-12.0) Seconds INR (0.9-1.1) APTT (21.0-31.0) Seconds PTT Ratio Sodium (136-145) mmol/L Potassium (3.5-5.1) mmol/L Chloride (98-107) mmol/L Carbon Dioxide (21-32) mmol/L Anion Gap (3-11) BUN (7-18) mg/dl Creatinine (0.6-1.2) mg/dl Est Cr Clr Drug Dosing ml/min Est GFR ( Amer) ml/min Est GFR (Non-Af Amer) ml/min BUN/Creatinine Ratio (10-20) Glucose (70-99) mg/dl Lactate (0.4-2.0) mmol/L Calcium (8.5-10.1) mg/dl Phosphorus (2.5-4.9) mg/dl Magnesium (1.8-2.4) mg/dl Ferritin (8-388) ng/ml Total Bilirubin (0.2-1) mg/dl AST (15-37) U/L ALT (12-78) U/L Alkaline Phosphatase (45-117) U/L Lactate Dehydrogenase (84-246) U/L Troponin I (0-0.045) ng/ml C-Reactive Protein (0-0.29) mg/dl Total Protein (6.4-8.2) gm/dl Albumin (3.4-5.0) gm/dl Globulin (2.5-4.0) gm/dl Albumin/Globulin Ratio (0.9-2) Procalcitonin (0-0.5) ng/ml COVID-19 Eval Order SARS-CoV-2 (PCR) (Negative) Blood Type A Positive Antibody Screen NEGATIVE Administered Medications Discontinued Medications Acetaminophen (Acetaminophen 325 Mg Tab) 650 mg PO Q4H PRN PRN Reason: pain/fever Stop: 02/17/21 00:30 Last Admin: 01/18/21 18:00 Dose: 650 mg Documented by: [id number] Albuterol (Albuterol Hfa 8 Gm Inhaler) 2 puffs INH NOW ONE Stop: 01/17/21 20:08 Last Admin: 01/17/21 20:44 Dose: 2 puffs Documented by: [id number] Albuterol (Albuterol Hfa 8 Gm Inhaler) 2 puffs INH Q4R CRISTOFER Stop: 02/17/21 01:59 Last Admin: 01/18/21 07:43 Dose: 2 puffs Documented by: [id number] Admin: 01/18/21 03:46 Dose: 2 puffs Documented by: [id number] Dexamethasone Sodium Phosphate (DexamethasonePf 10 Mg/Ml Vial) 6 mg IV NOW ONE Stop: 01/17/21 20:07 Last Admin: 01/17/21 20:43 Dose: 6 mg Documented by: [id number] Enoxaparin Sodium (Enoxaparin Inj 40 Mg/0.4 Ml Syr) 40 mg SQ Q12H CRISTOFER Stop: 02/17/21 01:59 Last Admin: 01/21/21 06:06 Dose: 40 mg Documented by: [id number] Admin: 01/20/21 18:26 Dose: 40 mg Documented by: [id number] Admin: 01/20/21 06:17 Dose: 40 mg Documented by: [id number] Admin: 01/19/21 16:59 Dose: 40 mg Documented by: [id number] Admin: 01/19/21 05:37 Dose: 40 mg Documented by: [id number] Admin: 01/18/21 17:57 Dose: 40 mg Documented by: [id number] Admin: 01/18/21 05:47 Dose: Not Given Documented by: [id number] Guaifenesin/Dextromethorphan (Guaifenesin/Dextrom Syrup 200mg/20mg 10ml Udc) 10 ml PO Q6H PRN PRN Reason: Cough Stop: 02/20/21 10:07 Last Admin: 01/21/21 10:34 Dose: 10 ml Documented by: [id number] Acetaminophen (Ofirmev) 1,000 mg in 100 mls @ 400 mls/hr IV NOW STA Stop: 01/17/21 20:20 Last Infusion: 01/17/21 21:04 Dose: 0 mls/hr Documented by: [id number] Admin: 01/17/21 20:43 Dose: 400 mls/hr Documented by: [id number] Remdesivir 200 mg/ Sodium (Chloride) 250 mls @ 125 mls/hr IV ONE STA; Protocol Stop: 01/18/21 00:44 Last Infusion: 01/18/21 01:14 Dose: 0 mls/hr Documented by: [id number] Admin: 01/17/21 23:14 Dose: 125 mls/hr Documented by: [id number] Dexamethasone 6 mg/ Syringe 1.5 mls @ 1 mls/min IV Q24H CRISTOFER Stop: 02/17/21 08:59 Last Admin: 01/21/21 08:31 Dose: 1 mls/min Documented by: [id number] Admin: 01/20/21 09:10 Dose: 1 mls/min Documented by: [id number] Admin: 01/19/21 09:17 Dose: 1 mls/min Documented by: [id number] Admin: 01/18/21 09:02 Dose: 1 mls/min Documented by: [id number] Remdesivir 100 mg/ Sodium (Chloride) 250 mls @ 250 mls/hr IV Q24H CRISTOFER; Protocol Stop: 01/21/21 20:59 Last Infusion: 01/20/21 22:14 Dose: 0 mls/hr Documented by: [id number] Admin: 01/20/21 21:14 Dose: 250 mls/hr Documented by: [id number] Infusion: 01/19/21 21:22 Dose: 0 mls/hr Documented by: [id number] Admin: 01/19/21 20:05 Dose: 250 mls/hr Documented by: [id number] Infusion: 01/18/21 21:21 Dose: 0 mls/hr Documented by: [id number] Admin: 01/18/21 20:13 Dose: 250 mls/hr Documented by: [id number] Sodium Chloride (Sodium Chloride 0.9% 10ml Flush) 30 ml IV Q24H CRISTOFER Stop: 01/22/21 01:31 Last Admin: 01/20/21 22:14 Dose: 30 ml Documented by: [id number] Admin: 01/19/21 21:22 Dose: 30 ml Documented by: [id number] Admin: 01/18/21 21:21 Dose: 30 ml Documented by: [id number] Admin: 01/18/21 02:21 Dose: 30 ml Documented by: [id number] Imaging Data Radiologist's Impression: Chest X-Ray 01/17/21 20:05 XR chest 1V portable HISTORY: 50 years-old Female SEPSIS acute sepsis COMPARISON: None TECHNIQUE: AP view of the chest FINDINGS: Cardiac silhouette is normal. Bilateral interstitial opacities with patchy multifocal airspace densities. No pneumothorax or large pleural effusion. Bones appear grossly intact. IMPRESSION: Bilateral mixed interstitial and alveolar opacities suggestive of multifocal pneumonia. ACT 112: Negative or not required by law. The above report was generated using voice recognition software. It may contain grammatical, syntax or spelling errors. Electronically signed by: Michel Anthony M.D. 01/18/2021 8:06 AM Discharge Plan Visit Data Chief Complaint: Shortness of Breath/Dyspnea Stated Complaint: SOB, COVID + TOADY ED Provider: Raphael Elmore Discharge Problem: Hypoxia, COVID-19 Patient Disposition: Admitted As Inpatient Discharge Instructions Interventions: ED Discharge Assessment Last Done: 01/17/21 23:43
== END 2021-01-21 16:16 | disposition home or self-care (01) | DRG 177 ==
LOC: ED 19:39 → SUATTDRO 22:45 → 3N 22:45 → 2E 01-20 21:03